=== PATIENT | male | born 1975 | race Caucasian/White ===

== ENCOUNTER 2019-06-15 05:44 | Day surgery (SDC) | payer OTHER ==
[~2019-06-15] VITALS: Ht 180.3 cm; Wt 104.8 kg
--- NOTE | ~2019-06-15 | OP ---
PATIENT NAME: ALCIDES ROCKWELL MEDICAL RECORD: [id number] :77 LOCATION:[facility] ADMISSION DATE: SURGEON: SAMUEL ESTEVES MD DATE OF OPERATION: 06/15/2019 PREOPERATIVE DIAGNOSES: 1. Right inguinal hernia. 2. Ulcerative colitis. POSTOPERATIVE DIAGNOSES: 1. Right inguinal hernia. 2. Ulcerative colitis. PROCEDURE: Right inguinal hernia repair with medium PHS mesh. SURGEON: Samuel Esteves MD REPORT OF PROCEDURE: The patient's right groin was prepped and draped in sterile fashion. An oblique incision was made above the inguinal ligament. Electrocautery was used to dissect through the subcutaneous tissues down to the external oblique fascia. This fascia was opened up to the external ring using electrocautery. At this point, the spermatic cord was elevated and a [place] was placed around it. There was some nervous tissue found near the spermatic cord and this was treated with electrocautery. There was a larger collection of nervous tissue, which was more superior. This appeared to be away from our tissues so we just left it alone. The patient had an indirect hernia defect. This was fatty containing. This was attached to the spermatic cord. We were able to detach its attachments and push it back into the abdominal cavity. We then made an opening at the base of the inguinal floor and opened up the preperitoneal space of [place]ius. A medium PHS mesh was inserted and then sutured down on all 4 sides using interrupted 0 Vicryl. The mesh appeared to rest in good position and covered up the hernia defect appropriately. The ilioinguinal nerve was checked one last time and it did not appear to be anywhere near the mesh. The wound was then irrigated out with normal saline and care was taken to assure there was no sign of any bleeding. The external oblique fascia was closed with running 2-0 Vicryl, Lydia's was closed with interrupted 3-0 Vicryl and the skin was closed with running subcutaneous 5-0 Monocryl. A total of 10 mL of 0.25% Marcaine with epinephrine was infused into the surrounding tissues and the wound was dressed appropriately. COMPLICATIONS: None. CONDITION: Stable. ANESTHESIA: General endotracheal and local. BLOOD LOSS: Minimal. TRANSINT:[id number] Voice Confirmation ID: [id number] DOCUMENT ID: [id number] OPERATIVE REPORT [id number] ROCKWELL,SAMUEL VILLALOBOS MD CC: CHAYA WAYNE MD [id number] DICTATION DATE: 06/15/19 0859 REHABILITATION COUNSELOR: 06/15/19 0923 [id number] [place] [address]
[~2019-06-15 05:44] MED LIST: AZASAN100 MG PO; KLONOPIN1 MG PO; NASONEX NASAL S17 GM NS; NUVIGIL250 MG PO; PROZAC40 MG PO; SYNTHROID50 MCG PO
[2019-06-15 06:08] LABS: BASOPHILS 0.4 % (0-2); EOSINOPHILS 2.3 % (0-7); HEMATOCRIT 44.6 % (42.0-54.0); HEMOGLOBIN 15.3 g/dL (13.5-17.5); IMMATURE GRANULOCYTES 0.3 % (0-5); MCH 30.2 pg (26.0-34.0); MCHC 34.3 g/dL (31.0-37.0); MCV 88.1 fL (80.0-100.0); MEAN PLATELET VOLUME 8.9 fL (7.4-10.4); MONOCYTES 10.3 % (2-11); NEUTROPHILS 58.7 % (40-80); PLATELET COUNT 280 10x3/uL (130-400); RBC 5.06 10x6/uL (4.20-6.10); RDW 14.1 % (11.5-14.5); WBC 7.1 10x3/uL (4.8-10.8)
[2019-06-15 06:36] LABS: CALC OSMOLALITY 280 mosm/kg (275-300); CALCIUM 8.7 mg/dL (8.5-10.1); CARBON DIOXIDE 29.2 mmol/L (21.0-32.0); CHLORIDE - SERUM 105 mmol/L (98-107); CREATININE - SERUM 1.1 mg/dL (0.6-1.3); GLUCOSE 90 mg/dL (74-106); POTASSIUM - SERUM 3.7 mmol/L (3.5-5.1); SODIUM 140 mmol/L (136-145); UREA NITROGEN 17 mg/dL (7-18); eGFR NON AFRICAN AMERICAN 78 mL/min (90-120)
[2019-06-15 06:47] VITALS: BP 138/79; Ht 180.3 cm; Wt 104.8 kg
[2019-06-15] MEDS ORDERED: HYDROCODON-ACE1 EA10 PO (08:55)
--- NOTE | 2019-06-15 10:43 | NUR ---
1040 SBP IN THE 90'S. IV BAG EMPTY. 2ND BAG OF LR HUNG AT 100CC/HR.
--- NOTE | 2019-06-15 10:46 | NUR ---
1043 B/P 111/69 AFTER LOWERING HOB. IV FLUIDS RUNNING.
--- NOTE | 2019-06-15 13:07 | NUR ---
1250 PT ASKING FOR PAIN MEDICINE BEFORE HE IS DISCHARGED AND MAKES LONG TRIP HOME. STATES PAIN LEVEL IS AT 6-7 AT PRESENT
--- NOTE | 2019-06-15 15:12 | NUR ---
1327 IV DC'D AFTER PT WAS SUCCESSFUL IN VOIDING. CATHETER INTACT. NO BLEEDING AT SITE. BANDAID APPLIED.
--- NOTE | 2019-06-15 15:14 | NUR ---
1340 PT WAS ABLE TO DRESS HIMSELF. FEELING BETTER AFTER [place]CO BUT C/O "SORENESS" WHEN HE MOVES.
== END 2019-06-15 13:51 | disposition home or self-care (01) ==
LOC: D.OPS 05:44
PROVIDERS: ATTEND Surgery
DX: K40.90 Unilateral inguinal hernia, without obstruction or gangrene, not specified as recurrent (principal); K51.90 Ulcerative colitis, unspecified, without complications; Z01.812 Encounter for preprocedural laboratory examination